=== PATIENT | male | born 1965 | race Caucasian/White ===

== ENCOUNTER 2018-01-04 11:00 | Outpatient (CLI) | payer OTHER ==
[2018-01-04] MEDS ORDERED: LORA10TA76 PO (11:08)
[2018-01-04] MEDS ORDERED: OMEP20TA33 PO (11:08)
== END 2018-01-04 11:12 ==
LOC: PREOP 11:00
PROVIDERS: ATTEND Surgery
DX: Z01.818 Encounter for other preprocedural examination (principal); Z12.11 Encounter for screening for malignant neoplasm of colon; R13.10 Dysphagia, unspecified

== ENCOUNTER 2018-02-04 05:34 | Outpatient (CLI) | payer OTHER ==
[~2018-02-04 05:34] MED LIST: LORA10TA76 PO; OMEP20TA33 PO
[2018-02-04] MEDS ORDERED: TERB250T16 PO (10:02)
== END 2018-02-04 10:21 ==
LOC: PREOP 05:34
PROVIDERS: ATTEND Surgery
DX: Z01.818 Encounter for other preprocedural examination (principal)

== ENCOUNTER 2018-02-11 07:58 | Day surgery (SDC) | payer OTHER ==
[~2018-02-11] VITALS: Ht 190.5 cm; Wt 98.4 kg
[~2018-02-11 07:58] MED LIST changes: +TERB250T16 PO
[2018-02-11] MEDS ORDERED: LACTATED RINGERS 1,000 ML IV ONE (08:09)
[2018-02-11] MEDS ORDERED: MIDAZOLAM 2 MG/2 ML (VERSED) VIAL ONE ×3 (08:32→08:33)
[2018-02-11] MEDS ORDERED: fentaNYL INJECTION 100 MCG/2 ML AMP ONE (08:33)
[2018-02-11] MEDS ORDERED: HURRICAINE EXT TUBE (BENZOCAINE) ONE (08:33)
[2018-02-11 08:43] VITALS: BP 128/89
[2018-02-11] MEDS ORDERED: LACTATED RINGERS 1,000 ML IV STA (08:47)
[2018-02-11] MEDS ORDERED: HURRICAINE EXT TUBE (BENZOCAINE) XX PRN (09:00)
[2018-02-11] MEDS: fentaNYL INJECTION 100 MCG/2 ML AMP IVP PRN ×2 (10:08→10:18)
[2018-02-11] MEDS: MIDAZOLAM 2 MG/2 ML (VERSED) VIAL IVP PRN ×2 (10:09→10:19)
[2018-02-11 10:35] VITALS: BP 116/60
--- NOTE | 2018-02-11 10:57 | History & Physicial ---
History of Present Illness History of Present Illness Reason for visit/HPI To undergo an upper endoscopy to evaluate symptoms of reflux and for screening colonoscopy. Reports a family history of polyps and colon cancer Date of Admission 02/11/18 Date Seen by Provider: Feb 11, 2018 Time Seen by Provider: 09:52 I consulted on this patient on 02/11/18 10:55 Attending Physician Harmeet Santoro MD Admitting Physician Ivan Alcocer MD Consult Allergies and Home Medications Allergies Coded Allergies: moxifloxacin (Verified Allergy, Unknown, 02/04/18) Home Medications Loratadine 10 Mg Tablet, 10 MG PO DAILY PRN for allergies, (Reported) Omeprazole Magnesium 20 Mg Tablet.dr, 20 MG PO DAILY, (Reported) Terbinafine HCl 250 Mg Tablet, 250 MG PO DAILY, (Reported) Patient Home Medication List Home Medication List Reviewed: Yes Past [id number]-[id number]-Jyhrce Hx Patient Social History Marrital Status: Employed/Student: employed Recent Foreign Travel: No Contact w/other who traveled: No Recent Hopitalizations: No Seasonal Allergies Seasonal Allergies: Yes Surgeries Yes Adenoidectomy, Tonsillectomy, Vasectomy Respiratory No Cardiovascular No Neurological No Reproductive System Hx Reproductive Disorders: No Genitourinary No Gastrointestinal Yes Gastroesophageal Reflux Musculoskeletal No Endocrine History of Endocrine Disorders: No Cancer No Psychosocial History of Psychiatric Problem: No Reviewed Nursing Assessment Reviewed/Agree w Nursing PMH: Yes Family Medical History Significant Family History: AAA, Cancer Constitutional: no symptoms reported EENTM: no symptoms reported Cardiovascular: no symptoms reported Gastrointestinal: see HPI Genitourinary: no symptoms reported Musculoskeletal: no symptoms reported Skin: no symptoms reported Psychiatric/Neurological: No Symptoms Reported Physical Exam Vital Signs Vital Signs - First Documented 02/11/18 08:43 Temp 96.9 Pulse 61 Resp 18 B/P (MAP) 128/89 (102) Pulse Ox 95 O2 Delivery Room Air Capillary Refill : Height, Weight, BMI Height: 6'3.00" Weight: 217lbs.0.0oz.[id number]; 27.1 BMI Method: General Appearance: No Apparent Distress Neck: Normal Inspection Gastrointestinal: Non Tender, Soft Rectal: Deferred Extremity: Normal Inspection Neurologic/Psychiatric: Alert, Oriented x3 Skin: Warm/Dry Assessment/Plan Assessment and Plan Gentleman to undergo upper endoscopy to evaluate reflux and concomitant screening colonoscopy. Discussed in detail. Admission Diagnosis Admission Status: Other (Outpt Proc) HARMEET SANTORO MD Feb 11, 2018 10:57 am
--- NOTE | 2018-02-11 10:57 | Conscious Sedation/ASA ---
Conscious Sedation Pre-Proced Time Reviewed: 09:53 ASA Class: 2 Airway Mallampati Classification: (red cliff appropriate class) I. II. III, IV Lungs Heart ASA score ASA 1: a normal healthy patient ASA 2: a patient with a mild systemic disease (mid diabetes, controlled hypertension, obesity ASA 3: a patient with a severe systemic disease that limits activity (angina , COPD, prior Myocardial infarction) ASA 4: a patient with an incapacitating disease that is a constant threat to life (CHF, renal failure) ASA 5: a moribund patient not expected to survive 24 hrs. (ruptured aneurysm) ASA 6: a declared brain patient whose organs are being harvested. For emergent operations, add the letter E after the classification Grade 1 Sedation Plan: Discussed options with patient/fam Note The patient is an appropriate candidate to undergo the planned procedure, sedation, and anesthesia. The patient immediately re-assessed prior to indication. HARMEET SANTORO MD Feb 11, 2018 10:57 am
--- NOTE | 2018-02-11 11:01 | Endo Procedure Record ---
Endo Procedure Report Date of Procedure Last Colonoscopy: No Feb 11, 2018 Surgeon (s) HARMEET SANTORO MD Post Procedure/Op Diagnosis EGD: Grade 2 esophagitis with a hiatal hernia. Antral and duodenal erosions Normal colonoscopy Procedure Performed EGD with antral biopsy for H. pylori Colonoscopy to cecum Description of Procedure Anesthesia Type: Conscious Sedation Specimen(s) collected/removed Antral mucosa for H. pylori Description of the Procedure Indication for the procedures: This gentleman came in for an upper endoscopy to evaluate symptoms of gastroesophageal reflux disease, along with colonoscopy for screening purposes. He reported a family history of polyps in his mother and colon cancer in his paternal grandmother. Informed consent was obtained after reviewing the procedures in detail. Description of procedures: EGD/antral biopsy: She was placed in left lateral decubitus position and his vital signs were monitored. Conscious sedation was achieved using Versed and fentanyl. The flexible gastroscope was introduced down the esophagus, past the stomach, into the proximal duodenum. Findings: Esophagus: A short hiatal hernia with grade 2 esophagitis. There was no stricture. Stomach: 2 very shallow erosions were found at the antrum. Biopsy for H. pylori was obtained. Duodenum: A small erosion at the first part without any ulceration. He tolerated the procedure well and was turned around in preparation for colonoscopy. Impression: Symptoms of reflux disease. Esophagitis and incidental antral erosions. H. pylori status pending. Colonoscopy: Digital rectal examination was unremarkable. The colonoscope was then introduced in the rectum and advanced all the cecum. The quality of bowel preparation was excellent. The scope was then withdrawn slowly and the mucosa examined in a systematic fashion. There was no abnormality. He tolerated the procedures well and was taken to the nursing area in a stable condition. Impression: Normal screening colonoscopy. Positive family history. Recommend repeating in 5 years. Copy Copies To 1: BRIANNA LARSON MD, XAVIER M MD Feb 11, 2018 11:01 am
--- NOTE | 2018-02-11 11:03 | Discharge Inst-Simple/Standard ---
Discharge Inst-Standard Discharge Medications New, Converted or Re-Newed RX: Other Patient Instructions/Follow Up Plan of Care/Instructions/FU: Repeat colonoscopy in 5 years Activity as Tolerated: Yes Discharge Diet: No Restrictions HARMEET SANTORO MD Feb 11, 2018 11:03 am
[2018-02-11 11:05] VITALS: BP 111/76
[2018-02-11 11:15] VITALS: BP 111/76
== END 2018-02-11 11:25 | disposition home or self-care (01) ==
LOC: ENDO 07:58
PROVIDERS: ATTEND Surgery
DX: Z12.11 Encounter for screening for malignant neoplasm of colon (principal); K20.9 Esophagitis, unspecified; K21.9 Gastro-esophageal reflux disease without esophagitis; K44.9 Diaphragmatic hernia without obstruction or gangrene; K25.9 Gastric ulcer, unspecified as acute or chronic, without hemorrhage or perforation; Z80.0 Family history of malignant neoplasm of digestive organs; Z83.71 Family history of colonic polyps

== ENCOUNTER → 2020-01-10 | Outpatient (CLI) | payer OTHER | LOC: LABNPT 11:49 | PROVIDERS: ATTEND Family Medicine | DX: Z20.828 Contact with and (suspected) exposure to other viral communicable diseases (principal) | CPT/HCPCS: 87635 ==

== ENCOUNTER → 2020-11-24 | Outpatient (CLI) | payer OTHER | LOC: LAB 11:33 | PROVIDERS: ATTEND Emergency Medicine | DX: T75.3XXA Motion sickness, initial encounter (principal); Z20.822 Contact with and (suspected) exposure to COVID-19 | CPT/HCPCS: 87635 ==